=== PATIENT | male | born 1985 | race Caucasian/White ===

== ENCOUNTER 2016-05-14 20:46 | Emergency (ER) | payer MEDICAID, OTHER ==
[~2016-05-14] VITALS: Ht 172.7 cm; Wt 68.0 kg
[2016-05-15] MEDS ORDERED: IBUPROFEN 600MG TABLET PO ONE (00:15)
[2016-05-15 00:37] LABS: CLARITY URINE CLEAR (CLEAR); COLOR URINE YELLOW (YELLOW); GLUCOSE URINE NEGATIVE (NEGATIVE); KETONES URINE TRACE (NEGATIVE); LEUKOCYTE ESTERASE URINE 1+ (NEGATIVE); NITRITE URINE NEGATIVE (NEGATIVE); OCCULT BLOOD URINE NEGATIVE (NEGATIVE); PH URINE 5.5 (4.5-8.0); PROTEIN URINE NEGATIVE (NEGATIVE); SPECIFIC GRAVITY URINE 1.018 (1.005-1.030)
[2016-05-15 00:50] LABS: SQUAMOUS EPITHELIAL CELL URINE NONE SEEN /lpf (RARE/1+)
[2016-05-15 00:51] LABS: RBC URINE 0-2 /hpf (0-2)
[2016-05-15 00:52] LABS: BACTERIA URINE NONE SEEN
[2016-05-15 01:10] LABS: *AMPHETAMINES SCREEN URINE PRESUMTIVE POSITIVE (NEGATIVE); *BARBITURATES SCREEN URINE NEGATIVE (NEGATIVE); *BENZODIAZEPINES SCREEN URINE NEGATIVE (NEGATIVE); *COCAINE SCREEN URINE NEGATIVE (NEGATIVE); CANNABINOID URINE SCREEN NEGATIVE (NEGATIVE); ECSTASY MDMA SCREEN URINE NEGATIVE (NEGATIVE); METHADONE URINE SCREEN NEGATIVE (NEGATIVE); OPIATES URINE SCREEN NEGATIVE (NEGATIVE); PHENCYCLIDINE URINE SCREEN NEGATIVE (NEGATIVE)
[2016-05-15 09:45] VITALS: BP 121/66
== END 2016-05-15 09:48 | disposition home or self-care (01) ==
LOC: ER 20:47
DX: S00.93XA Contusion of unspecified part of head, initial encounter (principal); S93.402A Sprain of unspecified ligament of left ankle, initial encounter; R04.0 Epistaxis; M25.552 Pain in left hip; Z59.0 Homelessness; V00.131A Fall from skateboard, initial encounter; Y93.51 Activity, roller skating (inline) and skateboarding; Y92.89 Other specified places as the place of occurrence of the external cause; Y99.8 Other external cause status
CPT/HCPCS: 73502; 73610; 73630; 80305; 81001; 99285; Z7610

== ENCOUNTER 2017-03-18 04:44 | Emergency (ER) | payer OTHER ==
[~2017-03-18] VITALS: Ht 172.7 cm; Wt 64.0 kg
[2017-03-18] MEDS ORDERED: KETOROLAC 60MG/2ML VIAL IM ONE (06:15)
[2017-03-18 07:14] VITALS: BP 122/64
== END 2017-03-18 08:15 | disposition home or self-care (01) ==
LOC: ER 04:44
DX: M20.011 Mallet finger of right finger(s) (principal); F17.200 Nicotine dependence, unspecified, uncomplicated; Z87.81 Personal history of (healed) traumatic fracture
CPT/HCPCS: 29130; 73130; 96372; 99284; J1885

== ENCOUNTER 2017-08-08 20:24 | Emergency (ER) | payer OTHER ==
[~2017-08-08] VITALS: Ht 172.7 cm; Wt 82.0 kg
[2017-08-08 21:59] VITALS: BP 118/75
[2017-08-08] MEDS ORDERED: IBUPROFEN 600MG TABLET PO ONE (22:00)
== END 2017-08-08 22:00 | disposition home or self-care (01) ==
LOC: ER 20:24
DX: K08.89 Other specified disorders of teeth and supporting structures (principal); F17.200 Nicotine dependence, unspecified, uncomplicated; F15.10 Other stimulant abuse, uncomplicated
CPT/HCPCS: 99282

== ENCOUNTER 2017-09-12 16:24 | Emergency (ER) | payer OTHER ==
[~2017-09-12] VITALS: Ht 175.3 cm; Wt 72.0 kg
[2017-09-12] MEDS ORDERED: TETANUS, DIPHTHERIA, PERTUSSIS VAC/PF 0.5ML (>7YR OLD) IM ONE (23:00)
[2017-09-12] MEDS ORDERED: BACITRACIN ZINC OINT UDPKT TOP ONE (23:00)
[2017-09-13 01:54] VITALS: BP 126/81
== END 2017-09-13 01:55 | disposition home or self-care (01) ==
LOC: ER 16:24
DX: S01.01XA Laceration without foreign body of scalp, initial encounter (principal); W22.8XXA Striking against or struck by other objects, initial encounter; Y93.89 Activity, other specified; Y92.89 Other specified places as the place of occurrence of the external cause; Z23 Encounter for immunization; R03.0 Elevated blood-pressure reading, without diagnosis of hypertension; F15.10 Other stimulant abuse, uncomplicated; F17.210 Nicotine dependence, cigarettes, uncomplicated
CPT/HCPCS: 70450; 90471; 90715; 99284

== ENCOUNTER 2020-06-12 12:05 | Emergency (ER) | payer OTHER ==
[~2020-06-12] VITALS: Ht 175.3 cm; Wt 76.0 kg
[2020-06-12 13:10] VITALS: BP 100/70
== END 2020-06-12 13:10 | disposition home or self-care (01) ==
LOC: ER 12:05
DX: F15.180 Other stimulant abuse with stimulant-induced anxiety disorder (principal)
CPT/HCPCS: 93005; 99283

== ENCOUNTER 2020-09-24 01:20 | Emergency (ER) | payer MEDICAID, OTHER | END 2020-09-24 02:16 | disposition left against medical advice (07) | LOC: ER 01:20 | DX: Z53.21 Procedure and treatment not carried out due to patient leaving prior to being seen by health care provider (principal) ==

== ENCOUNTER 2021-03-22 21:31 | Emergency (ER) | payer MEDICAID ==
[~2021-03-22] VITALS: Ht 175.3 cm; Wt 72.0 kg
[2021-03-22 21:32] VITALS: BP 128/86
== END 2021-03-22 22:49 | disposition left against medical advice (07) ==
LOC: ER 21:31
DX: Z53.21 Procedure and treatment not carried out due to patient leaving prior to being seen by health care provider (principal)

== ENCOUNTER 2021-03-23 | Emergency (ER) | payer MEDICAID, OTHER ==
[~2021-03-23] VITALS: Ht 175.3 cm; Wt 73.0 kg
[2021-03-23 00:44] VITALS: BP 126/73
[2021-03-23 01:53] LABS: BASOPHILS % 0.8 % (0.0-2.0); EOSINOPHILS % 1.1 % (0.0-5.0); HEMATOCRIT. 44.6 % (42.0-52.0); HEMOGLOBIN. 14.9 g/dL (14.0-18.0); LYMPHOCYTES % 19.3 % (20.0-50.0); MEAN CORPUSCULAR VOLUME 89.7 fL (80.0-94.0); MEAN PLATELET VOLUME 10.7 fl (7.4-10.4); MONOCYTES % 7.8 % (2.0-8.0); PLATELET 215 x1000/uL (130-400); RED BLOOD CELL COUNT 4.97 mill/uL (4.7-6.1); RED CELL DISTRIBUTION WIDTH 13.1 % (11.6-14.6)
[2021-03-23 01:56] LABS: CLARITY URINE CLEAR (CLEAR); COLOR URINE YELLOW (YELLOW); KETONES URINE 1+ (NEGATIVE); LEUKOCYTE ESTERASE URINE NEGATIVE (NEGATIVE); NITRITE URINE NEGATIVE (NEGATIVE); OCCULT BLOOD URINE NEGATIVE (NEGATIVE); PROTEIN URINE NEGATIVE (NEGATIVE); SPECIFIC GRAVITY URINE 1.027 (1.005-1.030); UROBILINOGEN URINE 0.2 E.U./dL (0.2-1.0)
[2021-03-23 01:56] LABS: CHLORIDE 104 mEq/L (98-107)
[2021-03-23 02:00] LABS: ETHANOL BLOOD < 10 mg/dL
[2021-03-23 02:10] LABS: *AMPHETAMINES SCREEN URINE PRESUMTIVE POSITIVE (NEGATIVE); *BARBITURATES SCREEN URINE NEGATIVE (NEGATIVE)
[2021-03-23 02:11] LABS: *BENZODIAZEPINES SCREEN URINE NEGATIVE (NEGATIVE); *COCAINE SCREEN URINE NEGATIVE (NEGATIVE); CANNABINOID URINE SCREEN NEGATIVE (NEGATIVE); METHADONE URINE SCREEN NEGATIVE (NEGATIVE); OPIATES URINE SCREEN NEGATIVE (NEGATIVE); PHENCYCLIDINE URINE SCREEN NEGATIVE (NEGATIVE)
== END 2021-03-23 03:07 | disposition home or self-care (01) ==
LOC: ER
DX: R10.13 Epigastric pain (principal); R11.2 Nausea with vomiting, unspecified; F15.10 Other stimulant abuse, uncomplicated; F16.10 Hallucinogen abuse, uncomplicated; F41.9 Anxiety disorder, unspecified
CPT/HCPCS: 36415; 71045; 80053; 80305; 80320; 81003; 84484; 85025; 93005; 99285; G0480

== ENCOUNTER 2023-03-12 01:35 | Emergency (ER) | payer MEDICAID, OTHER ==
[~2023-03-12] VITALS: Ht 167.6 cm; Wt 65.0 kg
[2023-03-12] MEDS ORDERED: ONDANSETRON HCL 4MG TABLET PO ONE (01:45)
[2023-03-12] MEDS ORDERED: PANTOPRAZOLE 40MG DR TABLET PO ONE (01:45)
[2023-03-12] MEDS ORDERED: MAGNESIUM/ALUMINUM HYDROXIDE/SIMETHICONE 30ML UDC PO ONE (01:45)
[2023-03-12 01:53] VITALS: BP 125/75; PULSE 80; RESP 16; TEMP 98.6; O2SAT 100
[2023-03-12] MEDS ORDERED: FAMO-135 MT (10:36)
== END 2023-03-12 02:05 | disposition left against medical advice (07) ==
LOC: EDBD → ER 01:35
DX: R53.83 Other fatigue (principal); F41.9 Anxiety disorder, unspecified; F15.90 Other stimulant use, unspecified, uncomplicated; K80.20 Calculus of gallbladder without cholecystitis without obstruction
CPT/HCPCS: 99283

== ENCOUNTER 2023-03-12 06:44 | Emergency (ER) | payer MEDICAID, OTHER ==
[~2023-03-12] VITALS: Ht 172.7 cm; Wt 64.0 kg
[2023-03-12 06:48] VITALS: BP 121/75; PULSE 92; RESP 20; TEMP 98.7; O2SAT 97
[2023-03-12] MEDS ORDERED: ONDANSETRON HCL 4MG/2ML INJ IV ONE (07:00)
[2023-03-12] MEDS ORDERED: FAMOTIDINE 20MG/2ML VIAL IV ONE (07:00)
[2023-03-12] MEDS ORDERED: DICYCLOMINE HCL 10MG/ML 2ML VIAL IM ONE (07:00)
[2023-03-12] MEDS ORDERED: SODIUM CHLORIDE 0.9% 1,000 ML IV ONE (07:00)
[2023-03-12 07:57] LABS: ALANINE AMINOTRANSFERASE 21 IU/L (10-49); ALBUMIN 4.4 g/dL (3.2-4.8); ASPARTATE AMINOTRANSFERASE 23 IU/L (<34); BILIRUBIN TOTAL 2.2 mg/dL (0.1-1.0); CALCIUM 9.5 mg/dL (8.7-10.4); CARBON DIOXIDE 29 mEq/L (21-32); CHLORIDE 102 mEq/L (98-107); CREATININE 0.7 mg/dL (0.6-1.3); GLUCOSE 85 mg/dL (70-105); POTASSIUM 4.4 mEq/L (3.5-5.1); PROTEIN TOTAL 7.4 g/dL (6.0-8.3); SODIUM 137 mEq/L (136-145); UREA NITROGEN BLOOD 7 mg/dL (9-23)
[2023-03-12 08:02] LABS: BASOPHILS % 0.4 % (0.0-2.0); EOSINOPHILS % 0.8 % (0.0-5.0); HEMATOCRIT. 39.7 % (42.0-52.0); HEMOGLOBIN. 13.8 g/dL (14.0-18.0); LYMPHOCYTES % 9.2 % (20.0-50.0); MEAN CORPUSCULAR HEMOGLOBIN 31.1 pg (28.0-32.0); MEAN CORPUSCULAR HGB CONC 34.7 g/dL (31.0-37.0); MEAN CORPUSCULAR VOLUME 89.6 fL (80.0-94.0); MEAN PLATELET VOLUME 10.6 fl (7.4-10.4); MONOCYTES % 8.7 % (2.0-8.0); NEUTROPHILS % 80.9 % (40.0-76.0); PLATELET 201 x1000/uL (130-400); RED BLOOD CELL COUNT 4.43 mill/uL (4.7-6.1)
[2023-03-12 08:04] LABS: ETHANOL BLOOD < 10 mg/dL (<10); TROPONIN I HIGH SENSITIVITY < 4 ng/L (3.0-53)
[2023-03-12] MEDS ORDERED: FAMO-135 MT (10:36)
== END 2023-03-12 10:56 | disposition home or self-care (01) ==
LOC: ER 06:44
DX: K21.9 Gastro-esophageal reflux disease without esophagitis (principal); F41.9 Anxiety disorder, unspecified; F15.10 Other stimulant abuse, uncomplicated
CPT/HCPCS: 80053; 80320; 83605; 83690; 85025; 84484; 36415; 96361; 96372; 96374; 96375; 99284; J0500; J3490; J2405; J7030; Z7610 ×2; C1893; G0480

== ENCOUNTER 2023-03-20 02:22 | Emergency (ER) | payer MEDICAID, OTHER ==
[~2023-03-20] VITALS: Ht 167.6 cm; Wt 79.0 kg
[~2023-03-20 02:22] MED LIST: FAMO-135 MT
[2023-03-20 02:27] VITALS: O2SAT 100
[2023-03-20] MEDS ORDERED: PENI500T MT (03:33)
[2023-03-20] MEDS ORDERED: NAPR-1164 MT (03:33)
[2023-03-20] MEDS ORDERED: MED4 MT (03:33)
[2023-03-20] MEDS: ACETAMINOPHEN 325MG TABLET PO ONE (05:18)
[2023-03-20] MEDS: PENICILLIN V POTASSIUM 250MG TABLET PO ONE (05:18)
[2023-03-20] MEDS: DEXAMETHASONE 10 MG/ML VIAL IM ONE (05:18)
[2023-03-20] MEDS: KETOROLAC 60MG/2ML VIAL IM ONE (05:18)
[2023-03-20 05:31] VITALS: BP 130/78; PULSE 91; RESP 20; TEMP 98.7
== END 2023-03-20 05:33 | disposition home or self-care (01) ==
LOC: ER 02:22
DX: J02.0 Streptococcal pharyngitis (principal); F15.10 Other stimulant abuse, uncomplicated; F41.9 Anxiety disorder, unspecified
CPT/HCPCS: 96372; 99284; J1100; J1885; Z7610

== ENCOUNTER 2024-10-25 22:00 | Emergency (ER) | payer MEDICAID ==
[~2024-10-25] VITALS: Ht 172.7 cm; Wt 68.0 kg
[~2024-10-25 22:00] MED LIST changes: +METH4TAB95 MT; +NAPR-1164 MT; +PENI500T MT
[2024-10-25 22:32] VITALS: TEMP 36.7; O2SAT 99
[2024-10-25 23:27] LABS: *AMPHETAMINES SCREEN URINE PRESUMPTIVE POSITIVE (NEGATIVE); *BARBITURATES SCREEN URINE NEGATIVE (NEGATIVE); *BENZODIAZEPINES SCREEN URINE NEGATIVE (NEGATIVE); *COCAINE SCREEN URINE NEGATIVE (NEGATIVE)
[2024-10-25 23:28] LABS: CANNABINOID URINE SCREEN NEGATIVE (NEGATIVE); ECSTASY MDMA SCREEN URINE NEGATIVE (NEGATIVE); METHADONE URINE SCREEN NEGATIVE (NEGATIVE); OPIATES URINE SCREEN NEGATIVE (NEGATIVE); PHENCYCLIDINE URINE SCREEN NEGATIVE (NEGATIVE)
[2024-10-25 23:35] LABS: BASOPHILS % 1.2 % (0.0-2.0); EOSINOPHILS % 4.0 % (0.0-5.0); HEMATOCRIT. 40.4 % (42.0-52.0); HEMOGLOBIN. 13.7 g/dL (14.0-18.0); LYMPHOCYTES % 20.2 % (20.0-50.0); MEAN PLATELET VOLUME 10.7 fl (7.4-10.4); MONOCYTES % 9.0 % (2.0-8.0); NEUTROPHILS % 65.6 % (40.0-76.0); PLATELET 204 x1000/uL (130-400); RED BLOOD CELL COUNT 4.53 mill/uL (4.7-6.1); RED CELL DISTRIBUTION WIDTH 13.4 % (11.6-14.6)
[2024-10-25 23:46] LABS: CREATININE 1.0 mg/dL (0.6-1.3); UREA NITROGEN BLOOD 10 mg/dL (9-23)
[2024-10-26 00:08] VITALS: TEMP 98
[2024-10-26] MEDS: ACETAMINOPHEN 500MG TABLET PO ONE (00:08)
[2024-10-26 00:22] VITALS: BP 120/71; PULSE 65; RESP 18; O2SAT 98
[2024-10-26] MEDS ORDERED: NAPR-1176 MT (01:56)
[2024-10-26] MEDS ORDERED: LIDO-53 TP (01:56)
== END 2024-10-26 00:24 | disposition home or self-care (01) ==
LOC: ER 22:00
DX: F15.10 Other stimulant abuse, uncomplicated (principal); F41.9 Anxiety disorder, unspecified; Z79.899 Other long term (current) drug therapy
CPT/HCPCS: 36415; 71045; 80048; 80305; 85025; 93005; 99285

== ENCOUNTER 2024-10-26 00:31 | Emergency (ER) | payer MEDICAID ==
[~2024-10-26] VITALS: Ht 172.7 cm; Wt 73.0 kg
[2024-10-26 00:44] VITALS: TEMP 36.8; O2SAT 98
[2024-10-26] MEDS ORDERED: ACETAMINOPHEN 325MG TABLET PO ONE (01:00)
[2024-10-26] MEDS ORDERED: LIDO-53 TP (01:56)
[2024-10-26] MEDS ORDERED: NAPR-1176 MT (01:56)
[2024-10-26 02:57] VITALS: BP 113/63; PULSE 71; RESP 12; O2SAT 100
[2024-10-26] MEDS: ACETAMINOPHEN 325MG TABLET PO NR (03:01)
== END 2024-10-26 03:02 | disposition home or self-care (01) ==
LOC: ER 00:40
DX: M25.511 Pain in right shoulder (principal); Z79.1 Long term (current) use of non-steroidal anti-inflammatories (NSAID); W19.XXXA Unspecified fall, initial encounter; Y93.89 Activity, other specified; Y92.89 Other specified places as the place of occurrence of the external cause; Y99.8 Other external cause status
CPT/HCPCS: 73030; 99283

== ENCOUNTER 2024-11-14 00:56 | Emergency (ER) | payer MEDICAID ==
[~2024-11-14] VITALS: Ht 170.2 cm; Wt 71.4 kg
[~2024-11-14 00:56] MED LIST changes: +LIDO-53 TP; +NAPR-1176 MT
[2024-11-14 01:07] VITALS: O2SAT 99
[2024-11-14 02:57] LABS: BASOPHILS % 0.8 % (0.0-2.0); EOSINOPHILS % 2.8 % (0.0-5.0); HEMATOCRIT. 41.4 % (42.0-52.0); HEMOGLOBIN. 14.0 g/dL (14.0-18.0); LYMPHOCYTES % 21.5 % (20.0-50.0); MEAN PLATELET VOLUME 10.6 fl (7.4-10.4); MONOCYTES % 9.0 % (2.0-8.0); NEUTROPHILS % 65.9 % (40.0-76.0); PLATELET 218 x1000/uL (130-400); RED BLOOD CELL COUNT 4.64 mill/uL (4.7-6.1); RED CELL DISTRIBUTION WIDTH 14.3 % (11.6-14.6)
[2024-11-14 03:07] LABS: CREATININE 0.9 mg/dL (0.6-1.3)
[2024-11-14 03:08] LABS: UREA NITROGEN BLOOD 11 mg/dL (9-23)
[2024-11-14 03:09] LABS: ASPARTATE AMINOTRANSFERASE 33 IU/L (<34)
[2024-11-14] MEDS: MAGNESIUM/ALUMINUM HYDROXIDE/SIMETHICONE 30ML UDC PO ONE (03:09)
[2024-11-14] MEDS: ONDANSETRON 4MG ODT PO ONE (03:09)
[2024-11-14 03:10] LABS: BILIRUBIN DIRECT 0.4 mg/dL (<=3.0); BILIRUBIN TOTAL 1.6 mg/dL (0.1-1.0); PROTEIN TOTAL 7.4 g/dL (6.0-8.3)
[2024-11-14] MEDS ORDERED: MAG-55 MT (03:42)
[2024-11-14 03:55] VITALS: BP 114/76; PULSE 64; RESP 18; TEMP 36.6; O2SAT 98
== END 2024-11-14 04:00 | disposition home or self-care (01) ==
LOC: ER 00:56
DX: K21.9 Gastro-esophageal reflux disease without esophagitis (principal); F41.9 Anxiety disorder, unspecified; F15.90 Other stimulant use, unspecified, uncomplicated; Z79.899 Other long term (current) drug therapy
CPT/HCPCS: 99284; 80076; 80048; 83690; 85025; 36415; 93005; Q0162

== ENCOUNTER 2024-12-24 18:17 | Emergency (ER) | payer MEDICAID, OTHER ==
[~2024-12-24] VITALS: Ht 180.3 cm; Wt 79.0 kg
[~2024-12-24 18:17] MED LIST changes: +MAG-55 MT
[2024-12-24 18:21] VITALS: O2SAT 99
[2024-12-24] MEDS: MAGNESIUM/ALUMINUM HYDROXIDE/SIMETHICONE 30ML UDC PO ONE (18:40)
[2024-12-24] MEDS: ONDANSETRON 4MG ODT PO ONE (18:40)
[2024-12-24] MEDS: FAMOTIDINE 20MG TABLET PO ONE (18:40)
[2024-12-24 18:57] LABS: PLATELET 210 x1000/uL (130-400); RED BLOOD CELL COUNT 4.61 mill/uL (4.7-6.1); RED CELL DISTRIBUTION WIDTH 14.4 % (11.6-14.6)
[2024-12-24 19:09] LABS: CREATININE 0.9 mg/dL (0.6-1.3); UREA NITROGEN BLOOD 13 mg/dL (9-23)
[2024-12-24 19:10] LABS: ETHANOL BLOOD < 10 mg/dL (<10)
[2024-12-24 21:25] VITALS: BP 122/85; PULSE 73; RESP 16; TEMP 36.7; O2SAT 97
[2024-12-24] MEDS ORDERED: ONDA-239 PO (21:31)
== END 2024-12-24 21:39 | disposition home or self-care (01) ==
LOC: ER 18:17
DX: F15.10 Other stimulant abuse, uncomplicated (principal); F22 Delusional disorders; F41.9 Anxiety disorder, unspecified
CPT/HCPCS: 80048; 80320; 85027; 36415; 99284; Q0162; G0480